=== PATIENT | male | born 1990 | race African-American/Black ===

== ENCOUNTER 2018-09-23 07:14 | Inpatient (IN) | payer MEDICAID ==
[~2018-09-23] VITALS: Ht 190.5 cm; Wt 126.6 kg
[2018-09-23 07:27] VITALS: Ht 190.5 cm; Wt 126.6 kg
--- NOTE | 2018-09-23 08:01 | NUR ---
PT BIB SELF C/O RADIATING MIDSTERNAL TO RIGHT SHOULDER SHARP CHEST PAIN X 4 DAYS. DENIES ANY INJURY. -N/V, DENIES ANY DIZZINESS. DENIES COUGH. PT C/O SOB X 4 DAYS D/T CHEST PAIN. NO RESP DISTRESS NOTED A THIS TIME. PT IS AAOX4, RESP E/U, SKIN IS WARM AND DRY. PT IS GOWNED, PLACED ON FULL CM, VSS, NSR, AND BED IN LOWEST POSITION. PT AWAITING MSE. WILL CONT TO MONITOR.
--- NOTE | 2018-09-23 08:24 | NUR ---
DATA ANALYSIS ASSISTANT AT BEDSIDE FOR BLOOD DRAW
[2018-09-23 08:27] LABS: BASOPHIL % 0.5 % (0-2); PLATELET COUNT 241 x10^3mcL (130-400); RED CELL DISTRIBUTION WIDTH 14.3 % (11.5-14.5)
--- NOTE | 2018-09-23 08:36 | NUR ---
MEDICATED PER MD ORDER, SEE EMAR, PT TOLERATED WELL. PT IN NO DISTRESS AT THIS TIME, AAOX4, RESP E/U. WILL CONT TO MONITOR.
[2018-09-23 08:39] LABS: CALCIUM 8.7 mg/dL (8.5-10.1); CARBON DIOXIDE 30.5 mmol/L (21-32); CHLORIDE SERUM 102 mmol/L (98-107); CREATININE SERUM 1.2 mg/dL (0.7-1.3); GFR1 > 60 mL/min; GLUCOSE SERUM 106 mg/dL (74-106); POTASSIUM SERUM 3.9 mmol/L (3.5-5.1); SODIUM SERUM 137 mmol/L (136-145)
--- NOTE | 2018-09-23 08:41 | NUR ---
XRAY AT BEDSIDE
[2018-09-23 08:43] LABS: ALBUMIN 3.6 g/dL (3.4-5.0); ALKALINE PHOSPHATASE 68 U/L (46-116); ALT/SGPT 19 U/L (16-63); AST/SGOT 18 U/L (15-37); BILIRUBIN TOTAL 0.34 mg/dL (0.20-1.00); LIPASE 82 IU/L (73-393); TOTAL PROTEIN, SERUM 7.4 g/dL (6.4-8.2)
--- NOTE | 2018-09-23 09:06 | NUR ---
PT AMBULATED TO RESTROOM WITH A STEADY GAIT.
--- NOTE | 2018-09-23 09:09 | NUR ---
PT AMBULATED WITH A STEADY GAIT TO BED FROM RESTROOM WITHOUT INCIDENT.
--- NOTE | 2018-09-23 10:50 | NUR ---
GAVE REPORT TO AFSHAN WARNER WHO WILL RESUME FURTHER CARE OF THE PATIENT.
[2018-09-23 11:05] LABS: PHOSPHOROUS 3.4 mg/dL (2.5-4.9)
[2018-09-23 11:10] VITALS: BP 120/82
--- NOTE | 2018-09-23 11:10 | NUR ---
PT IN NO DISTRESS, AAOX4, PT TAKEN VIA GURNEY TO TELE FLOOR BY TERELL ENGLISH AND LUCA WARNER.
--- NOTE | 2018-09-23 11:10 | NUR ---
RECEIVED FROM ER VIA [facility], [place], ADMITS FOR CHEST PAIN RADIATING MIDSTERNAL TO RIGHT SHOULDER, STATED CHEST PAIN RELIEF AFTER PAIN MEDS GIVEN IN ER. TELE# 19 INPLACED HR=93, NSR. DENIES HAVING ANY MEDICAL HISTORY. NO SOB OR RESP DISTRESS NOTED ON ROOM AIR, O2SAT 97% UPON ARRIVAL. S/L TO RAC FLUSHED PATENT. ORIENTING TO ROOM ENVIRONMENT. CALL LIGHT PLACED WITHIN EASY REACH, SIDERAILS UP X2.
--- NOTE | 2018-09-23 11:50 | NUR ---
IVF NS AT 100ML/HR TO RAC INFUSING WELL. ON REGULAR DIET.
--- NOTE | 2018-09-23 13:49 | NUR ---
NORCO 1 TAB PO GIVEN FOR MIDSTERNAL/RIGHT SHOULDER PAIN. WILL CONTINUE TO MONITOR.
[2018-09-23 14:32] LABS: microscopic required? NO
[2018-09-23 14:42] LABS: urine erythrocyte NEGATIVE (NEGATIVE)
[2018-09-23 15:09] LABS: AMPHETAMINE QUAL UR NONE DETECTED (See below)
[2018-09-23 16:11] VITALS: BP 122/76
--- NOTE | 2018-09-23 18:34 | NUR ---
NO ANY DISTRESS THROUGHOUT SHIFT. VSS. AMBULATORY WELL. VOIDS. NORCO 1 TAB GIVEN X1 FOR MIDSTERANL PAIN WIT GOOD RELIEF. IVF NS INFUSING WELL.
--- NOTE | 2018-09-23 19:37 | NUR ---
AWAKE AND ALERT, ORIENTED TO NAME, PLACE, TIME AND SITUATION. SPEECH CLEAR AND APPROPRIATE. BREATHING EVEN AND UNLABORED ON ROOM AIR. HOB ELEVATED 45 DEG. IVF OF NS AT 100ML/HR, INFUSING WELL. FAMILY MEMBERS IN ROOM.
[2018-09-23 19:48] VITALS: BP 131/83
--- NOTE | 2018-09-23 19:55 | NUR ---
PT INSISTED ON GOING DOWN TO LOBBY TO SEE HIS SON WHO IS BELOW 13 YEARS OLD. PT AMBULATED ACCOMPANIED BY TWO FAMILY MEMBERS. PT GAIT STEADY
--- NOTE | 2018-09-23 20:03 | NUR ---
BACK FROM LOBBY
--- NOTE | 2018-09-23 21:30 | NUR ---
PT CALLED, STATED HAVING ABD PAIN, DESCRIBED ACID LIKE PAIN. INFORMED DR. GRIFFITH, NEW ORDER RECEIVED, WAITING FOR PHARMACY TO VERIFY
--- NOTE | 2018-09-23 23:54 | NUR ---
EYES CLOSED, BREATHING EVEN AND UNLABORED ON ROOM AIR. CALL LIGHT WITHIN EASY REACH.
[2018-09-24 04:20] VITALS: BP 116/69
--- NOTE | 2018-09-24 06:16 | NUR ---
AWAKE AND ALERT, DENIES HAVING PAIN AT THIS TIME. SITTING ON CHAIR. BREATHING EVEN AND UNLABORED ON ROOM AIR. IVF OF NS INFUSING WELL AT 100ML/HR. IV SITE TO RIGHT AC FREE FROM ERYTHEMA OR SWELLING.
--- NOTE | 2018-09-24 07:20 | NUR ---
SEN IN BED AAOX4. NO SOB OR RESP DISTRESS NOTED ON ROOM AIR. TELE# 19 NSR. STATED PAIN TO MIDSTERNAL AREA IS TOLERABLE. ON REGULAR DIET. AMBULATORY WELL TO BATHROOM. IVF NS TO RAC INFUSING WELL AT 100ML/HR. PLAN OF CARE DISCUSSED. CALL LIGHT PLACED WITHIN EASY REACH. SIDERAILS UP X2.
[2018-09-24 07:23] LABS: CALCIUM 8.2 mg/dL (8.5-10.1); CARBON DIOXIDE 28.2 mmol/L (21-32); CHLORIDE SERUM 102 mmol/L (98-107); CREATININE SERUM 1.1 mg/dL (0.7-1.3); GFR1 > 60 mL/min; GLUCOSE SERUM 84 mg/dL (74-106); POTASSIUM SERUM 4.1 mmol/L (3.5-5.1); SODIUM SERUM 138 mmol/L (136-145)
[2018-09-24 07:26] LABS: BASOPHIL % 0.8 % (0-2); PLATELET COUNT 229 x10^3mcL (130-400)
--- NOTE | 2018-09-24 08:34 | NUR ---
ECHOCARDIOGRAM ONGOING AT BEDSIDE.
--- NOTE | 2018-09-24 10:00 | NUR ---
DOCTOR PEPE AND MEDICAL TEAM AT BEDSIDE FOR AM ROUND.
[2018-09-24 10:31] VITALS: BP 105/57
[2018-09-24] MEDS ORDERED: IBUPROFEN400 MG PO (10:52)
[2018-09-24 11:28] VITALS: BP 105/57
[2018-09-24 13:01] VITALS: BP 130/78
--- NOTE | 2018-09-24 13:35 | NUR ---
DISCHARGE INSTRUCTION/PRESCRIPTION EXPLAINED AND GIVEN TO PATIENT WHO IS AWAKE,ALERT, ORIENTED X4. DENIES PAIN AT THIS TIME. IV CATHETER TO RAC REMOVED NO ERYTHEMA OR SWELLING NOTED, DRSG APPLIED. TELEMETRY#19 REMOVED. CONDITION STABLE. PATIENT'S SISTER AND GIRLFIREND AT BEDSIDE.
--- NOTE | 2018-09-24 13:45 | NUR ---
DISCHARGE HOME WITH STABLE CONDITION, ACCOMPANIED BY HIS SISTER AND GIRLFRIEND.
== END 2018-09-24 13:45 | disposition home or self-care (01) | DRG 203 ==
LOC: ED 07:14 → DU 10:04
PROVIDERS: Emergency Medicine; ADMIT Internal Medicine
DX: M94.0 Chondrocostal junction syndrome [Tietze] (principal); E83.51 Hypocalcemia; I45.6 Pre-excitation syndrome; I49.3 Ventricular premature depolarization; K21.9 Gastro-esophageal reflux disease without esophagitis; R73.03 Prediabetes; Z68.35 Body mass index [BMI] 35.0-35.9, adult; Z87.891 Personal history of nicotine dependence
CPT/HCPCS: J1885; J2405; J7030; Q0092